=== PATIENT | female | born 1960 | race Two or more races ===

== ENCOUNTER → 2018-09-24 | Outpatient (CLI) | payer OTHER | END | disposition home or self-care (01) | LOC: SONOGRAMA 11:30 | DX: K76.0 Fatty (change of) liver, not elsewhere classified (principal) ==

== ENCOUNTER 2019-05-29 09:50 | Outpatient (CLI) | payer OTHER | END 2019-05-29 09:53 | disposition home or self-care (01) | LOC: MAMO-SONO 09:50 | DX: I10 Essential (primary) hypertension (principal); Z12.39 Encounter for other screening for malignant neoplasm of breast; Z12.31 Encounter for screening mammogram for malignant neoplasm of breast ==

== ENCOUNTER 2021-05-19 12:14 | Outpatient (CLI) | payer OTHER | END 2021-05-19 12:25 | disposition home or self-care (01) | LOC: MAMO-SONO 12:14 | PROVIDERS: ATTEND Specialist | DX: N60.11 Diffuse cystic mastopathy of right breast (principal); N60.12 Diffuse cystic mastopathy of left breast ==

== ENCOUNTER 2023-08-24 13:39 | Outpatient (CLI) | payer OTHER | END 2023-08-24 13:56 | disposition home or self-care (01) | LOC: MAMO-SONO 13:39 | DX: N64.4 Mastodynia (principal); Z12.31 Encounter for screening mammogram for malignant neoplasm of breast ==

== ENCOUNTER 2023-12-14 08:45 | Outpatient (CLI) | payer OTHER | END 2023-12-14 08:48 | disposition home or self-care (01) | LOC: SONOGRAMA 08:45 | PROVIDERS: ATTEND Internal Medicine Hepatology | DX: R10.31 Right lower quadrant pain (principal) ==

== ENCOUNTER 2024-10-17 11:24 | Outpatient (CLI) | payer OTHER | END 2024-10-17 11:25 | disposition home or self-care (01) | LOC: MAMO-SONO 11:24 | PROVIDERS: ATTEND Obstetrics & Gynecology | DX: N60.11 Diffuse cystic mastopathy of right breast (principal); N60.12 Diffuse cystic mastopathy of left breast; Z12.31 Encounter for screening mammogram for malignant neoplasm of breast ==